=== PATIENT | male | born 1935 | race Caucasian/White ===

== ENCOUNTER 2024-05-06 09:18 | Outpatient (CLI) | payer MEDICARE | END 2024-05-06 09:19 | disposition home or self-care (01) | LOC: CSHWCC 09:18 | PROVIDERS: ATTEND Nurse Practitioner Family | DX: S50.811D Abrasion of right forearm, subsequent encounter (principal); I89.0 Lymphedema, not elsewhere classified | CPT/HCPCS: 11042; G0463; 99213 ==

== ENCOUNTER 2024-05-13 09:26 | Outpatient (CLI) | payer MEDICARE | END 2024-05-13 09:27 | disposition home or self-care (01) | LOC: CSHWCC 09:26 | PROVIDERS: ATTEND Nurse Practitioner Family | DX: S50.811D Abrasion of right forearm, subsequent encounter (principal); I89.0 Lymphedema, not elsewhere classified | CPT/HCPCS: 11042 ==